=== PATIENT | male | born 1945 | race Caucasian/White ===

== ENCOUNTER 2021-06-07 16:18 | Inpatient (IN) ==
[2021-06-07] MEDS ORDERED: Furosemide 40 MG/4 ML VIAL IVP ONE (17:35)
[2021-06-07] MEDS: *HR* OxyCODONE/APAP 5/325 TABLET PO PRN (20:45)
[2021-06-07] MEDS: Temazepam 15 MG CAPSULE PO PRN (20:46)
[2021-06-07] MEDS: Budesonide/Formoterol 160/4.5 1 PUFF INH IH SCH (21:21)
[2021-06-08 04:42] LABS: Basophils # 0.1 K/mcL (0.0-0.2); Basophils % 0.4 %; Eosinophils # 1.1 K/mcL (0.0-0.6); Eosinophils % 9.4 %; Hematocrit 28.9 % (37.5-50.1); Hemoglobin 9.8 g/dL (12.9-16.9); Immature Granulocytes % 7.2 % (0-4); Lymphocytes # 0.7 K/mcL (0.6-4.6); Lymphocytes % 5.7 %; Mean Corpuscular HGB Conc 33.9 g/dL (31.6-35.5); Mean Corpuscular Hemoglobin 31.4 pg (28.0-33.3); Mean Corpuscular Volume 92.6 fL (83.0-100.0); Mean Platelet Volume 11.8 fL (9.4-12.4); Monocytes # 1.2 K/mcL (0.0-1.3); Monocytes % 9.8 %; Nucleated Red Blood Cells 0.3 /100 WBC (0); Platelet Count 290 K/mcL (140-400); Red Blood Count 3.12 M/mcL (4.19-5.50); Red Cell Distribution Width 13.6 % (11.5-14.5); Segmented Neutrophils % 67.5 %; White Blood Count 11.9 K/mcL (4.3-11.1)
[2021-06-08 04:47] LABS: Platelet Estimate Normal (Normal)
[2021-06-08 04:56] LABS: BUN/Creatinine Ratio 24 (6-26); Blood Urea Nitrogen 25 mg/dL (8-23); Carbon Dioxide 31 mEq/L (23-29); Chloride 96 mEq/L (98-107); Glucose 196 mg/dL (70-105); Osmolality,Calculated 290 (280-300); Potassium 3.6 mEq/L (3.5-5.1); Sodium 135 mEq/L (136-145); eGFR For African Americans > 60 (> 60); eGFR For Non-African Americans > 60 (> 60)
[2021-06-08] MEDS: *HR* OxyCODONE/APAP 5/325 TABLET PO PRN (05:21)
[2021-06-08] MEDS: *HR* Enoxaparin 40 MG/0.4 ML SYRINGE SQ SCH (05:22)
[2021-06-08] MEDS: Budesonide/Formoterol 160/4.5 1 PUFF INH IH SCH ×2 (07:27→20:57)
[2021-06-08] MEDS: Fenofibrate 54 MG TABLET PO SCH (09:43)
[2021-06-08] MEDS: Losartan/HCTZ 50-12.5 TABLET PO SCH (09:43)
[2021-06-08] MEDS: Aspirin 81 MG TAB.CHEW PO SCH (09:43)
[2021-06-08] MEDS: Furosemide 40 MG TABLET PO SCH (09:43)
[2021-06-08] MEDS: *HR* Metformin 500 MG TABLET PO SCH ×2 (09:43→17:17)
[2021-06-08] MEDS: FERROUS SULFATE 27 MG PO SCH (09:44)
[2021-06-08] MEDS ORDERED: Dextrose 4 GM Chewable Tablets PO PRN ×2 (11:13)
[2021-06-08] MEDS ORDERED: D5% in Water 1,000 ML IVC PRN (11:13)
[2021-06-08] MEDS ORDERED: *HR* Dextrose 50 % in Water (Syg) 50 ML SYRINGE IVP PRN (11:13)
[2021-06-08] MEDS: Insulin LISPRO 300 UNITS/3 ML VIAL SUBQ SCH ×4 (11:39→19:57)
[2021-06-08] MEDS ORDERED: 0.9 % Sodium Chloride 1,000 ML ONE (18:04)
[2021-06-08] MEDS ORDERED: 0.9 % Sodium Chloride 500 ML IVC SCH (18:15)
[2021-06-09] MEDS: *HR* Enoxaparin 40 MG/0.4 ML SYRINGE SQ SCH (04:18)
[2021-06-09] MEDS: Budesonide/Formoterol 160/4.5 1 PUFF INH IH SCH ×2 (07:28→20:02)
[2021-06-09] MEDS: *HR* Metformin 500 MG TABLET PO SCH ×2 (07:43→16:55)
[2021-06-09] MEDS: Aspirin 81 MG TAB.CHEW PO SCH (07:44)
[2021-06-09] MEDS: Furosemide 40 MG TABLET PO SCH (07:44)
[2021-06-09] MEDS: FERROUS SULFATE 27 MG PO SCH (07:44)
[2021-06-09] MEDS: Fenofibrate 54 MG TABLET PO SCH (07:44)
[2021-06-09] MEDS: Insulin LISPRO 300 UNITS/3 ML VIAL SUBQ SCH ×4 (07:45→20:17)
[2021-06-09] MEDS: Losartan/HCTZ 50-12.5 TABLET PO SCH (07:45)
[2021-06-09] MEDS: Cholecalciferol (D-3) 1,000 UNIT (25MCG) TABLET PO SCH (08:46)
[2021-06-09] MEDS ORDERED: Albumin 25% 12.5gm/50mL 12.5 GM/50 ML IV.SOLN IVPB ONE (08:52)
[2021-06-09 09:11] LABS: Basophils # 0.1 K/mcL (0.0-0.2); Basophils % 0.7 %; Eosinophils # 1.1 K/mcL (0.0-0.6); Eosinophils % 7.1 %; Hematocrit 27.3 % (37.5-50.1); Hemoglobin 9.3 g/dL (12.9-16.9); Immature Granulocytes % 7.1 % (0-4); Lymphocytes # 0.9 K/mcL (0.6-4.6); Mean Corpuscular HGB Conc 34.1 g/dL (31.6-35.5); Mean Corpuscular Hemoglobin 31.6 pg (28.0-33.3); Mean Corpuscular Volume 92.9 fL (83.0-100.0); Mean Platelet Volume 11.2 fL (9.4-12.4); Monocytes # 1.2 K/mcL (0.0-1.3); Monocytes % 7.6 %; Neutrophils # 10.9 K/mcL (1.6-8.9); Nucleated Red Blood Cells 0.1 /100 WBC (0); Platelet Count 336 K/mcL (140-400); Red Blood Count 2.94 M/mcL (4.19-5.50); Red Cell Distribution Width 13.8 % (11.5-14.5); Segmented Neutrophils % 71.5 %; White Blood Count 15.3 K/mcL (4.3-11.1)
[2021-06-09] MEDS ORDERED: Albumin 25% 25gram/100mL 25 GM/100 ML IV.SOLN IVPB ONE (09:24)
[2021-06-09] MEDS: Temazepam 15 MG CAPSULE PO PRN (20:00)
[2021-06-10] MEDS: *HR* Enoxaparin 40 MG/0.4 ML SYRINGE SQ SCH (05:17)
[2021-06-10] MEDS: Aspirin 81 MG TAB.CHEW PO SCH (09:24)
[2021-06-10] MEDS: Fenofibrate 54 MG TABLET PO SCH (09:24)
[2021-06-10] MEDS: Losartan/HCTZ 50-12.5 TABLET PO SCH (09:24)
[2021-06-10] MEDS: Furosemide 40 MG TABLET PO SCH (09:24)
[2021-06-10] MEDS: *HR* OxyCODONE/APAP 5/325 TABLET PO PRN ×3 (09:25→22:35)
[2021-06-10] MEDS: Cholecalciferol (D-3) 1,000 UNIT (25MCG) TABLET PO SCH (09:25)
[2021-06-10] MEDS: *HR* Metformin 500 MG TABLET PO SCH ×2 (09:25→15:58)
[2021-06-10] MEDS: FERROUS SULFATE 27 MG PO SCH (09:25)
[2021-06-10] MEDS: Insulin LISPRO 300 UNITS/3 ML VIAL SUBQ SCH ×4 (09:26→19:50)
[2021-06-10] MEDS: Budesonide/Formoterol 160/4.5 1 PUFF INH IH SCH ×2 (10:12→19:24)
[2021-06-10 11:54] LABS: Bilirubin,Urine Negative (Negative); Blood,Urine Negative (Negative); Clarity,Urine Slightly Cloudy (Clear); Color,Urine Yellow (Yellow); Glucose,Urine (UA) >=1000 mg/dL (Normal); Ketones,Urine Negative (Negative); Leukocyte Esterase,Urine Negative (Negative); Nitrite,Urine Negative (Negative); Protein,Urine Negative (Neg-Trace); Specific Gravity,Urine 1.015 (1.010-1.025); Urobilinogen,Urine Normal (Normal)
[2021-06-10 12:32] LABS: Budding Yeast,Urine Moderate per hpf (None Seen)
[2021-06-10 12:33] LABS: WBC,Urine 0-3 per hpf (0-3)
[2021-06-10] MEDS: Acetaminophen 325 MG TABLET PO PRN (19:49)
[2021-06-10] MEDS: Temazepam 15 MG CAPSULE PO PRN (19:49)
[2021-06-11] MEDS: *HR* Enoxaparin 40 MG/0.4 ML SYRINGE SQ SCH (05:28)
[2021-06-11 06:00] LABS: Basophils # 0.1 K/mcL (0.0-0.2); Basophils % 0.8 %; Eosinophils # 0.9 K/mcL (0.0-0.6); Eosinophils % 6.9 %; Hematocrit 27.3 % (37.5-50.1); Hemoglobin 9.2 g/dL (12.9-16.9); Immature Granulocytes % 8.4 % (0-4); Lymphocytes # 1.5 K/mcL (0.6-4.6); Lymphocytes % 11.3 %; Mean Corpuscular HGB Conc 33.7 g/dL (31.6-35.5); Mean Corpuscular Hemoglobin 31.5 pg (28.0-33.3); Mean Corpuscular Volume 93.5 fL (83.0-100.0); Monocytes # 0.9 K/mcL (0.0-1.3); Monocytes % 6.8 %; Neutrophils # 8.6 K/mcL (1.6-8.9); Platelet Count 384 K/mcL (140-400); Red Blood Count 2.92 M/mcL (4.19-5.50); Segmented Neutrophils % 65.8 %
[2021-06-11 06:16] LABS: BUN/Creatinine Ratio 21 (6-26); Blood Urea Nitrogen 25 mg/dL (8-23); Calcium 8.5 mg/dL (8.6-10.3); Carbon Dioxide 32 mEq/L (23-29); Chloride 97 mEq/L (98-107); Glucose 115 mg/dL (70-105); Magnesium 2.3 mg/dL (1.6-2.6); Osmolality,Calculated 289 (280-300); Potassium 3.3 mEq/L (3.5-5.1); Sodium 137 mEq/L (136-145); eGFR For African Americans > 60 (> 60); eGFR For Non-African Americans > 60 (> 60)
[2021-06-11] MEDS: Budesonide/Formoterol 160/4.5 1 PUFF INH IH SCH ×2 (07:13→21:33)
[2021-06-11] MEDS: FERROUS SULFATE 27 MG PO SCH (08:23)
[2021-06-11 08:25] LABS: Platelet Estimate Normal (Normal); Smudge Cells Present (Not Present)
[2021-06-11] MEDS: Insulin LISPRO 300 UNITS/3 ML VIAL SUBQ SCH ×4 (08:25→20:45)
[2021-06-11 08:26] LABS: Polychromasia 1+ (Not Present)
[2021-06-11] MEDS: Losartan/HCTZ 50-12.5 TABLET PO SCH (08:26)
[2021-06-11] MEDS: Furosemide 40 MG TABLET PO SCH (08:27)
[2021-06-11] MEDS: Aspirin 81 MG TAB.CHEW PO SCH (08:27)
[2021-06-11] MEDS: *HR* Metformin 500 MG TABLET PO SCH ×2 (08:27→16:33)
[2021-06-11] MEDS: Fenofibrate 54 MG TABLET PO SCH (08:27)
[2021-06-11] MEDS: Cholecalciferol (D-3) 1,000 UNIT (25MCG) TABLET PO SCH (08:27)
[2021-06-11] MEDS: Acetaminophen 325 MG TABLET PO PRN (22:36)
[2021-06-12] MEDS: *HR* Enoxaparin 40 MG/0.4 ML SYRINGE SQ SCH (05:21)
[2021-06-12 06:17] LABS: Basophils # 0.2 K/mcL (0.0-0.2); Basophils % 1.3 %; Eosinophils # 0.9 K/mcL (0.0-0.6); Eosinophils % 5.6 %; Hematocrit 30.9 % (37.5-50.1); Hemoglobin 10.2 g/dL (12.9-16.9); Lymphocytes # 1.4 K/mcL (0.6-4.6); Lymphocytes % 8.9 %; Mean Corpuscular Volume 93.9 fL (83.0-100.0); Mean Platelet Volume 10.7 fL (9.4-12.4); Monocytes % 6.4 %; Neutrophils # 11.2 K/mcL (1.6-8.9); Platelet Count 426 K/mcL (140-400); Red Blood Count 3.29 M/mcL (4.19-5.50); Red Cell Distribution Width 14.1 % (11.5-14.5); Segmented Neutrophils % 70.8 %; White Blood Count 15.8 K/mcL (4.3-11.1)
[2021-06-12] MEDS: Budesonide/Formoterol 160/4.5 1 PUFF INH IH SCH (07:18)
[2021-06-12 07:34] LABS: BUN/Creatinine Ratio 21 (6-26); Blood Urea Nitrogen 22 mg/dL (8-23); Carbon Dioxide 23 mEq/L (23-29); Chloride 94 mEq/L (98-107); Glucose 129 mg/dL (70-105); Osmolality,Calculated 279 (280-300); Potassium 3.9 mEq/L (3.5-5.1); Sodium 132 mEq/L (136-145); eGFR For African Americans > 60 (> 60); eGFR For Non-African Americans > 60 (> 60)
[2021-06-12 08:56] LABS: Platelet Estimate Normal (Normal); Polychromasia 1+ (Not Present)
[2021-06-12] MEDS: Insulin LISPRO 300 UNITS/3 ML VIAL SUBQ SCH ×3 (09:49→17:18)
[2021-06-12] MEDS: Cholecalciferol (D-3) 1,000 UNIT (25MCG) TABLET PO SCH (09:51)
[2021-06-12] MEDS: Furosemide 40 MG TABLET PO SCH (09:52)
[2021-06-12] MEDS: Fenofibrate 54 MG TABLET PO SCH (09:52)
[2021-06-12] MEDS: Losartan/HCTZ 50-12.5 TABLET PO SCH (09:52)
[2021-06-12] MEDS: *HR* Metformin 500 MG TABLET PO SCH (09:52)
[2021-06-12] MEDS: Aspirin 81 MG TAB.CHEW PO SCH (09:52)
[2021-06-12] MEDS: FERROUS SULFATE 27 MG PO SCH (09:53)
[2021-06-12 12:00] VITALS: RESP 18
[2021-06-12 14:33] LABS: Bilirubin,Urine Negative (Negative); Blood,Urine Negative (Negative); Clarity,Urine Clear (Clear); Color,Urine Yellow (Yellow); Glucose,Urine (UA) >=1000 mg/dL (Normal); Ketones,Urine Negative (Negative); Leukocyte Esterase,Urine Negative (Negative); Nitrite,Urine Negative (Negative); PH,Urine 6.5 pH Units (5.0-8.0); Protein,Urine Trace mg/dL (Neg-Trace); Urobilinogen,Urine Normal (Normal)
[2021-06-12 14:43] LABS: Bacteria,Urine Few per hpf (None-Few); Budding Yeast,Urine Moderate per hpf (None Seen)
[2021-06-12 18:07] VITALS: BP 110/67; PULSE 83; TEMP 98.3; O2SAT 92
[2021-06-12] MEDS: Acetaminophen 325 MG TABLET PO PRN (18:22)
[2021-06-13] MEDS ORDERED: Dulaglutide [Trulicity] 1.5 MG/0.5 ML Pen.Injctr SQ SCH (09:00)
[2021-06-13] MEDS ORDERED: Furosemide 40 MG TABLET PO SCH (09:00)
== END 2021-06-12 18:50 | disposition short-term general hospital (02) | DRG 313 ==
LOC: INPGRE 16:35
PROVIDERS: ADMIT Internal Medicine; ATTEND Family Medicine